=== PATIENT | male | born 1985 | race African-American/Black ===

== ENCOUNTER 2017-01-28 18:55 | Emergency (ER) | payer MEDICARE, MEDICAID ==
[~2017-01-28] VITALS: Ht 188 cm; Wt 76.2 kg
[~2017-01-28 18:55] MED LIST: ALBU05 INH; QUET100T PO
[2017-01-28 18:57] VITALS: BP 155/76
== END 2017-01-28 20:54 | disposition home or self-care (01) ==
LOC: ER 19:04
DX: Z00.8 Encounter for other general examination (principal); I10 Essential (primary) hypertension
CPT/HCPCS: 99281